=== PATIENT | male | born 1945 | race Caucasian/White ===

== ENCOUNTER 2021-11-09 21:09 | Inpatient (IN) | payer OTHER, BC ==
[~2021-11-09] VITALS: Ht 165.1 cm; Wt 84.4 kg
[~2021-11-09 21:09] MED LIST: AMYL1CAP54 PO; ASA81 PO; BET(AF)80 PO; CLON0.5T4 PO; CLOP75TA2 PO; COR6.25 PO; CYAN100070 PO; DOCU-144 PO; ESCI20TA PO; EZET1TAB35 PO; FOLI-43 PO; GABA800T PO; LISI2.5T48 PO; MEX150 PO; NITR0.4T47 SL; TRIA0.2585 PO; ZOLP10TA2 PO
[2021-11-09 21:28] VITALS: BP_SYST 129
[2021-11-09 22:50] LABS: BASOPHILS # (AUTO) 0.1 K/uL (0.0-0.2); BASOPHILS % (AUTO) 1.1 % (0.0-2.0); EOSINOPHILS # (AUTO) 0.3 K/uL (0.0-0.4); EOSINOPHILS % (AUTO) 3.9 % (0.0-4.0); HEMATOCRIT 36.9 % (36-54); HEMOGLOBIN 12.5 g/dL (14.0-18.0); LYMPHOCYTES # (AUTO) 1.5 K/uL (1.0-5.5); LYMPHOCYTES % (AUTO) 20.8 % (20.5-51.5); MEAN CORPUSCULAR HEMOGLOBIN 30 pg (27-31); MEAN CORPUSCULAR HGB CONC 34 % (32-36); MEAN CORPUSCULAR VOLUME 89 fL (79.0-98.0); MONOCYTES # (AUTO) 0.7 K/uL (0.0-1.0); MONOCYTES % (AUTO) 10.2 % (1.7-9.3); NEUTROPHILS # (AUTO) 4.6 K/uL (1.8-7.7); PLATELET COUNT (AUTO) 215 K/uL (130-430); RED BLOOD CELL COUNT(AUTO) 4.15 MIL/uL (4.2-6.2); RED CELL DISTRIBUTION WIDTH 12.1 % (9.0-15.0); WHITE BLOOD COUNT (AUTO) 7.2 K/uL (4.8-10.8)
[2021-11-09 23:27] LABS: ANION GAP 10 (5-15); CALCIUM 9.4 mg/dL (8.4-11.0); CHLORIDE 98 mmol/L (98-107); GLUCOSE 107 mg/dL (70-99); POTASSIUM 4.1 mmol/L (3.5-5.1); SODIUM SERUM 131 mmol/L (136-145); UREA NITROGEN, BLOOD 15 mg/dL (8-21)
[2021-11-09 23:35] LABS: ALANINE AMINOTRANSFERASE 38 U/L (12-78); ASPARTATE AMINOTRANSFERASE 23 U/L (10-37); TOTAL BILIRUBIN 0.6 mg/dL (0.0-1.0)
[2021-11-10] VITALS: BP_SYST 111
[2021-11-10] MEDS ORDERED: MORPHINE 4 MG INJ. 4 MG/ML VIAL IVP ONE ×2 (00:15)
[2021-11-10] MEDS ORDERED: ENOXAPARIN SODIUM 80 MG/0.8 ML SYRINGE SUBCUT ONE (01:15)
[2021-11-10] MEDS ORDERED: clonazePAM 0.5 MG TABLET PO ONE (01:15)
[2021-11-10] MEDS ORDERED: SOTALOL HCL 80 MG TABLET PO ONE (01:15)
[2021-11-10] MEDS ORDERED: ZOLPIDEM TARTRATE 5 MG TABLET PO ONE (01:15)
[2021-11-10] MEDS ORDERED: FUROSEMIDE 20 MG/2 ML VIAL IVP ONE (02:30)
[2021-11-10] MEDS ORDERED: MORPHINE 4 MG INJ. 4 MG/ML VIAL ONE (02:41)
[2021-11-10] MEDS ORDERED: FURO-150 PO (03:58)
[2021-11-10] MEDS ORDERED: BET(AF)80 PO (03:58)
[2021-11-10] MEDS ORDERED: PERC10 PO (03:58)
[2021-11-10] MEDS ORDERED: LEVA15HF5 INH (03:58)
[2021-11-10] MEDS ORDERED: CYM30 PO (03:58)
[2021-11-10] MEDS ORDERED: APIX5TAB PO (03:58)
[2021-11-10] MEDS ORDERED: EZET1TAB31 PO (03:58)
[2021-11-10] MEDS ORDERED: AMYL1CAP58 PO (03:58)
[2021-11-10 05:01] VITALS: BP_SYST 116
[2021-11-10] MEDS ORDERED: NITROGLYCERIN 0.4 MG TAB.SUBL SL PRN (07:00)
[2021-11-10] MEDS ORDERED: HYDROcodone/ACETAMIN 5-325 MG TAB (NORCO/ VICODIN) PO PRN (07:00)
[2021-11-10 08:00] VITALS: BP_SYST 148
[2021-11-10] MEDS ORDERED: lisinopriL 5 MG TABLET PO SCH (09:00)
[2021-11-10] MEDS ORDERED: DOCUSATE SODIUM 100 MG CAPSULE PO SCH (09:00)
[2021-11-10] MEDS ORDERED: FUROSEMIDE 20 MG TABLET PO SCH (09:00)
[2021-11-10] MEDS: guaiFENesin/DEXTROMETHORPHAN 10 ML UDC PO PRN ×2 (09:28→20:27)
[2021-11-10] MEDS: DULoxetine HCL 30 MG CAPSULE.DR (CYMBALTA) PO SCH (09:29)
[2021-11-10] MEDS: LOSARTAN POTASSIUM 50 MG TABLET (COZAAR) PO SCH (09:29)
[2021-11-10] MEDS: LIPASE/PROTEASE/AMYLASE 1 CAP PO SCH ×3 (09:29→17:38)
[2021-11-10] MEDS: FOLIC ACID 1 MG TABLET PO SCH (09:29)
[2021-11-10] MEDS ORDERED: ZOLPIDEM TARTRATE 5 MG TABLET PO SCH (10:15)
[2021-11-10] MEDS ORDERED: ONDANSETRON HCL 4 MG/2 ML VIAL IVP PRN (10:15)
[2021-11-10] MEDS ORDERED: OXYCODONE/ACETAMINOPHEN *10*mg/325 mg TABLET PO PRN (10:15)
[2021-11-10] MEDS ORDERED: IPRATROPIUM/ALBUTEROL SULFATE 3 ML AMPUL.NEB (DUONEB) INH PRN (10:45)
[2021-11-10] MEDS ORDERED: HYDROmorphone 1 MG/ML INJ. CARTRIDGE IVP PRN (11:00)
[2021-11-10] MEDS ORDERED: NALOXONE HCL 0.4 MG/ML AMP (NARCAN) IVP PRN (11:00)
[2021-11-10] MEDS ORDERED: LIPASE/PROTEASE/AMYLASE 1 CAP PO SCH (12:00)
[2021-11-10] MEDS ORDERED: CITALOPRAM HYDROBROMIDE 20 MG TABLET PO ONE (12:00)
[2021-11-10] MEDS: CARVEDILOL 6.25 MG TABLET (COREG) PO SCH ×2 (12:20→20:27)
[2021-11-10] MEDS: MEXILETINE HCL 150 MG CAPSULE PO SCH ×2 (12:21→20:28)
[2021-11-10 12:22] VITALS: BP_SYST 132
[2021-11-10] MEDS: OXYCODONE/ACETAMINOPHEN *10*mg/325 mg TABLET PO PRN ×2 (12:46→20:28)
[2021-11-10 16:00] VITALS: BP_SYST 138
[2021-11-10] MEDS: clonazePAM 0.5 MG TABLET PO SCH (17:39)
[2021-11-10] MEDS: CYANOCOBALAMIN 1000 mCg TABLET PO SCH (17:39)
[2021-11-10] MEDS: CLOPIDOGREL BISULFATE 75 MG TABLET PO SCH (17:39)
[2021-11-10 20:00] VITALS: BP_SYST 136
[2021-11-10] MEDS: DOCUSATE SODIUM 250 MG CAPSULE PO SCH (20:26)
[2021-11-10] MEDS: EZETIMIBE 10 MG TABLET PO SCH (20:26)
[2021-11-10] MEDS: SIMVASTATIN 40 MG TABLET PO SCH (20:27)
[2021-11-10] MEDS: SOTALOL (AF) 80 MG TABLET PO SCH (20:28)
[2021-11-10] MEDS: APIXABAN 2.5 MG TABLET PO SCH (20:30)
[2021-11-10] MEDS: ZOLPIDEM TARTRATE 5 MG TABLET PO PRN (21:56)
[2021-11-10] MEDS: BUDESONIDE 0.5 MG/2 ML AMPUL.NEB INH SCH (22:18)
[2021-11-11 01:16] VITALS: BP_SYST 111
[2021-11-11] MEDS: BUDESONIDE 0.5 MG/2 ML AMPUL.NEB INH SCH (07:00)
[2021-11-11 07:37] LABS: BASOPHILS % (AUTO) 0.8 % (0.0-2.0); EOSINOPHILS # (AUTO) 0.3 K/uL (0.0-0.4); EOSINOPHILS % (AUTO) 5.4 % (0.0-4.0); HEMATOCRIT 38.6 % (36-54); HEMOGLOBIN 12.9 g/dL (14.0-18.0); LYMPHOCYTES # (AUTO) 1.4 K/uL (1.0-5.5); LYMPHOCYTES % (AUTO) 23.8 % (20.5-51.5); MEAN CORPUSCULAR HEMOGLOBIN 30 pg (27-31); MEAN CORPUSCULAR HGB CONC 33 % (32-36); MEAN CORPUSCULAR VOLUME 89 fL (79.0-98.0); MONOCYTES # (AUTO) 0.7 K/uL (0.0-1.0); MONOCYTES % (AUTO) 12.1 % (1.7-9.3); NEUTROPHILS # (AUTO) 3.3 K/uL (1.8-7.7); NEUTROPHILS % (AUTO) 57.9 % (40.0-70.0); PLATELET COUNT (AUTO) 223 K/uL (130-430); RED BLOOD CELL COUNT(AUTO) 4.36 MIL/uL (4.2-6.2); RED CELL DISTRIBUTION WIDTH 12.2 % (9.0-15.0); WHITE BLOOD COUNT (AUTO) 5.7 K/uL (4.8-10.8)
[2021-11-11 07:52] LABS: ALANINE AMINOTRANSFERASE 29 U/L (12-78); ALBUMIN 2.8 g/dL (3.4-4.8); ANION GAP 7 (5-15); ASPARTATE AMINOTRANSFERASE 17 U/L (10-37); CALCIUM 8.3 mg/dL (8.4-11.0); CHLORIDE 98 mmol/L (98-107); CREATININE 0.78 mg/dL (0.55-1.30); GLUCOSE 117 mg/dL (70-99); SODIUM SERUM 132 mmol/L (136-145); TOTAL BILIRUBIN 0.7 mg/dL (0.0-1.0); UREA NITROGEN, BLOOD 14 mg/dL (8-21)
[2021-11-11 08:00] VITALS: BP_SYST 158
[2021-11-11 08:27] LABS: INR 1.1 (0.80-1.20); PROTHROMBIN TIME 11.9 SECS (9.5-12.5)
[2021-11-11] MEDS: MEXILETINE HCL 150 MG CAPSULE PO SCH ×2 (08:46→21:58)
[2021-11-11] MEDS: FOLIC ACID 1 MG TABLET PO SCH (08:48)
[2021-11-11] MEDS: CARVEDILOL 6.25 MG TABLET (COREG) PO SCH ×2 (08:48→21:00)
[2021-11-11] MEDS: LOSARTAN POTASSIUM 50 MG TABLET (COZAAR) PO SCH (08:48)
[2021-11-11] MEDS: DOCUSATE SODIUM 250 MG CAPSULE PO SCH ×2 (08:49→21:57)
[2021-11-11] MEDS: DULoxetine HCL 30 MG CAPSULE.DR (CYMBALTA) PO SCH (08:49)
[2021-11-11] MEDS: APIXABAN 2.5 MG TABLET PO SCH ×2 (08:54→22:05)
[2021-11-11] MEDS: LIPASE/PROTEASE/AMYLASE 1 CAP PO SCH ×3 (08:55→17:35)
[2021-11-11] MEDS ORDERED: SOTALOL (AF) 80 MG TABLET PO SCH (09:00)
[2021-11-11] MEDS ORDERED: CITALOPRAM HYDROBROMIDE 20 MG TABLET PO SCH (09:00)
[2021-11-11] MEDS ORDERED: FUROSEMIDE 20 MG TABLET PO SCH (09:00)
[2021-11-11] MEDS ORDERED: FUROSEMIDE 20 MG TABLET PO ONE (10:15)
[2021-11-11] MEDS: OXYCODONE/ACETAMINOPHEN *10*mg/325 mg TABLET PO PRN ×3 (10:25→17:37)
[2021-11-11 10:29] LABS: CHOLESTEROL 120 mg/dL (<200); HDL CHOLESTEROL 40 mg/dL (>45); LDL CHOLESTEROL 68 mg/dL (<100); TRIGLYCERIDES 73 mg/dL (30-150)
[2021-11-11] MEDS ORDERED: SOTALOL (AF) 80 MG TABLET PO ONE (10:30)
[2021-11-11 12:21] VITALS: BP_SYST 126
[2021-11-11 17:19] VITALS: BP_SYST 122
[2021-11-11] MEDS: CLOPIDOGREL BISULFATE 75 MG TABLET PO SCH (17:35)
[2021-11-11] MEDS: clonazePAM 0.5 MG TABLET PO SCH (17:36)
[2021-11-11] MEDS: CYANOCOBALAMIN 1000 mCg TABLET PO SCH (17:36)
[2021-11-11 20:00] VITALS: BP_SYST 116
[2021-11-11] MEDS: SIMVASTATIN 40 MG TABLET PO SCH (21:57)
[2021-11-11] MEDS: ZOLPIDEM TARTRATE 5 MG TABLET PO PRN (21:58)
[2021-11-11] MEDS: EZETIMIBE 10 MG TABLET PO SCH (21:58)
[2021-11-11] MEDS: SOTALOL (AF) 80 MG TABLET PO SCH (21:59)
[2021-11-11] MEDS: HYDROmorphone 2 MG/ML VIAL IVP PRN (22:12)
[2021-11-11] MEDS: guaiFENesin/DEXTROMETHORPHAN 10 ML UDC PO PRN (22:58)
[2021-11-12 01:08] VITALS: BP_SYST 116
[2021-11-12 02:21] VITALS: BP_SYST 134
[2021-11-12] MEDS: HYDROmorphone 2 MG/ML VIAL IVP PRN (02:23)
[2021-11-12 05:58] LABS: BASOPHILS % (AUTO) 0.8 % (0.0-2.0); EOSINOPHILS # (AUTO) 0.3 K/uL (0.0-0.4); EOSINOPHILS % (AUTO) 5.3 % (0.0-4.0); HEMATOCRIT 37.3 % (36-54); HEMOGLOBIN 12.7 g/dL (14.0-18.0); LYMPHOCYTES # (AUTO) 1.7 K/uL (1.0-5.5); LYMPHOCYTES % (AUTO) 27.5 % (20.5-51.5); MEAN CORPUSCULAR HEMOGLOBIN 30 pg (27-31); MEAN CORPUSCULAR HGB CONC 34 % (32-36); MEAN CORPUSCULAR VOLUME 88 fL (79.0-98.0); MONOCYTES # (AUTO) 0.7 K/uL (0.0-1.0); NEUTROPHILS # (AUTO) 3.4 K/uL (1.8-7.7); NEUTROPHILS % (AUTO) 55.4 % (40.0-70.0); PLATELET COUNT (AUTO) 229 K/uL (130-430); RED BLOOD CELL COUNT(AUTO) 4.23 MIL/uL (4.2-6.2); RED CELL DISTRIBUTION WIDTH 12.5 % (9.0-15.0); WHITE BLOOD COUNT (AUTO) 6.1 K/uL (4.8-10.8)
[2021-11-12 07:22] LABS: ALBUMIN 2.8 g/dL (3.4-4.8); ANION GAP 5 (5-15); ASPARTATE AMINOTRANSFERASE 20 U/L (10-37); CALCIUM 8.4 mg/dL (8.4-11.0); CHLORIDE 97 mmol/L (98-107); CREATININE 0.81 mg/dL (0.55-1.30); GLUCOSE 98 mg/dL (70-99); SODIUM SERUM 131 mmol/L (136-145); UREA NITROGEN, BLOOD 13 mg/dL (8-21)
[2021-11-12] MEDS: OXYCODONE/ACETAMINOPHEN *10*mg/325 mg TABLET PO PRN ×3 (08:35→20:06)
[2021-11-12] MEDS ORDERED: CITALOPRAM HYDROBROMIDE 20 MG TABLET PO SCH (09:00)
[2021-11-12] MEDS: APIXABAN 2.5 MG TABLET PO SCH ×2 (09:19→20:07)
[2021-11-12] MEDS: guaiFENesin/DEXTROMETHORPHAN 10 ML UDC PO PRN (09:20)
[2021-11-12] MEDS: SOTALOL (AF) 80 MG TABLET PO SCH ×2 (09:22→20:16)
[2021-11-12] MEDS: MEXILETINE HCL 150 MG CAPSULE PO SCH ×2 (09:23→20:15)
[2021-11-12] MEDS: CARVEDILOL 6.25 MG TABLET (COREG) PO SCH ×2 (09:23→20:14)
[2021-11-12] MEDS: DOCUSATE SODIUM 250 MG CAPSULE PO SCH ×2 (09:23→20:14)
[2021-11-12] MEDS: FOLIC ACID 1 MG TABLET PO SCH (09:24)
[2021-11-12] MEDS: LIPASE/PROTEASE/AMYLASE 1 CAP PO SCH ×3 (09:25→17:38)
[2021-11-12] MEDS: LOSARTAN POTASSIUM 50 MG TABLET (COZAAR) PO SCH (09:26)
[2021-11-12] MEDS: FUROSEMIDE 40 MG TABLET PO SCH (09:27)
[2021-11-12 09:38] LABS: ALANINE AMINOTRANSFERASE 30 U/L (12-78); TOTAL BILIRUBIN 0.6 mg/dL (0.0-1.0)
[2021-11-12] MEDS: BUDESONIDE 0.5 MG/2 ML AMPUL.NEB INH SCH ×2 (09:54→20:00)
[2021-11-12] MEDS ORDERED: CITALOPRAM HYDROBROMIDE 20 MG TABLET PO ONE (10:00)
[2021-11-12 10:21] VITALS: BP_SYST 119
[2021-11-12] MEDS ORDERED: LIDOCAINE PATCH 5% 1 EA TP ONE (14:00)
[2021-11-12 16:12] VITALS: BP_SYST 114
[2021-11-12] MEDS: clonazePAM 0.5 MG TABLET PO SCH (17:38)
[2021-11-12] MEDS: CLOPIDOGREL BISULFATE 75 MG TABLET PO SCH (17:38)
[2021-11-12] MEDS: CYANOCOBALAMIN 1000 mCg TABLET PO SCH (17:38)
[2021-11-12] MEDS: EZETIMIBE 10 MG TABLET PO SCH (20:06)
[2021-11-12 20:11] VITALS: BP_SYST 136
[2021-11-12] MEDS: SIMVASTATIN 40 MG TABLET PO SCH (20:14)
[2021-11-12] MEDS: ZOLPIDEM TARTRATE 5 MG TABLET PO PRN (21:40)
[2021-11-13 00:08] VITALS: BP_SYST 134
[2021-11-13 07:24] LABS: ANION GAP 8 (5-15); CALCIUM 9.4 mg/dL (8.4-11.0); CHLORIDE 98 mmol/L (98-107); CREATININE 0.89 mg/dL (0.55-1.30); GLUCOSE 122 mg/dL (70-99); SODIUM SERUM 134 mmol/L (136-145); UREA NITROGEN, BLOOD 14 mg/dL (8-21)
[2021-11-13] MEDS: BUDESONIDE 0.5 MG/2 ML AMPUL.NEB INH SCH (07:36)
[2021-11-13 07:44] LABS: BASOPHILS # (AUTO) 0.1 K/uL (0.0-0.2); BASOPHILS % (AUTO) 0.8 % (0.0-2.0); EOSINOPHILS # (AUTO) 0.4 K/uL (0.0-0.4); EOSINOPHILS % (AUTO) 5.1 % (0.0-4.0); HEMATOCRIT 41.8 % (36-54); HEMOGLOBIN 14.3 g/dL (14.0-18.0); LYMPHOCYTES # (AUTO) 1.7 K/uL (1.0-5.5); LYMPHOCYTES % (AUTO) 22.3 % (20.5-51.5); MEAN CORPUSCULAR HEMOGLOBIN 30 pg (27-31); MEAN CORPUSCULAR HGB CONC 34 % (32-36); MEAN CORPUSCULAR VOLUME 88 fL (79.0-98.0); MONOCYTES # (AUTO) 0.6 K/uL (0.0-1.0); MONOCYTES % (AUTO) 8.7 % (1.7-9.3); NEUTROPHILS # (AUTO) 4.7 K/uL (1.8-7.7); NEUTROPHILS % (AUTO) 63.1 % (40.0-70.0); PLATELET COUNT (AUTO) 321 K/uL (130-430); RED BLOOD CELL COUNT(AUTO) 4.74 MIL/uL (4.2-6.2); RED CELL DISTRIBUTION WIDTH 12.4 % (9.0-15.0); WHITE BLOOD COUNT (AUTO) 7.4 K/uL (4.8-10.8)
[2021-11-13] MEDS: LIPASE/PROTEASE/AMYLASE 1 CAP PO SCH ×2 (08:05→12:38)
[2021-11-13] MEDS: OXYCODONE/ACETAMINOPHEN *10*mg/325 mg TABLET PO PRN ×2 (08:06→12:39)
[2021-11-13] MEDS ORDERED: LIDOCAINE PATCH 5% 1 EA TP SCH (09:00)
[2021-11-13] MEDS ORDERED: CITALOPRAM HYDROBROMIDE 20 MG TABLET PO SCH (09:00)
[2021-11-13 09:05] VITALS: BP_SYST 129
[2021-11-13] MEDS: FOLIC ACID 1 MG TABLET PO SCH (09:44)
[2021-11-13] MEDS: FUROSEMIDE 40 MG TABLET PO SCH (09:44)
[2021-11-13] MEDS: LOSARTAN POTASSIUM 50 MG TABLET (COZAAR) PO SCH (09:45)
[2021-11-13] MEDS: DOCUSATE SODIUM 250 MG CAPSULE PO SCH (09:45)
[2021-11-13] MEDS: CARVEDILOL 6.25 MG TABLET (COREG) PO SCH (09:45)
[2021-11-13] MEDS: MEXILETINE HCL 150 MG CAPSULE PO SCH (09:46)
[2021-11-13] MEDS: SOTALOL (AF) 80 MG TABLET PO SCH (09:47)
[2021-11-13] MEDS: APIXABAN 2.5 MG TABLET PO SCH (09:57)
[2021-11-13 11:23] VITALS: BP_SYST 119
[2021-11-13 11:30] VITALS: BP_SYST 119
[2021-11-13 11:49] VITALS: BP_SYST 119
== END 2021-11-13 13:35 | disposition home or self-care (01) | DRG 291 ==
LOC: SED 21:09 → STU 11-10 02:34
PROVIDERS: ADMIT Internal Medicine; ATTEND Internal Medicine
DX: I11.0 Hypertensive heart disease with heart failure (principal); J96.21 Acute and chronic respiratory failure with hypoxia; I50.43 Acute on chronic combined systolic (congestive) and diastolic (congestive) heart failure; J44.1 Chronic obstructive pulmonary disease with (acute) exacerbation; S42.215A Unspecified nondisplaced fracture of surgical neck of left humerus, initial encounter for closed fracture; S42.295A Other nondisplaced fracture of upper end of left humerus, initial encounter for closed fracture; E87.1 Hypo-osmolality and hyponatremia; I47.2 Ventricular tachycardia; F33.1 Major depressive disorder, recurrent, moderate; D68.59 Other primary thrombophilia; I25.10 Atherosclerotic heart disease of native coronary artery without angina pectoris; Z20.822 Contact with and (suspected) exposure to COVID-19; I25.5 Ischemic cardiomyopathy; W18.39XA Other fall on same level, initial encounter; F41.9 Anxiety disorder, unspecified; I48.0 Paroxysmal atrial fibrillation; M48.061 Spinal stenosis, lumbar region without neurogenic claudication; D64.9 Anemia, unspecified; G89.4 Chronic pain syndrome; Z88.5 Allergy status to narcotic agent; Z88.8 Allergy status to other drugs, medicaments and biological substances; Z91.041 Radiographic dye allergy status; Z79.899 Other long term (current) drug therapy; Z79.82 Long term (current) use of aspirin; Z79.01 Long term (current) use of anticoagulants; Z95.810 Presence of automatic (implantable) cardiac defibrillator; Z90.49 Acquired absence of other specified parts of digestive tract; Z86.74 Personal history of sudden cardiac arrest; Y93.89 Activity, other specified; Y92.89 Other specified places as the place of occurrence of the external cause; Y99.8 Other external cause status
CPT/HCPCS: 36415; 71045; 73030; 78579; 78580-TC; 80048; 80053; 80061; 82550; 83735; 83880; 84484; 85025; 85379; 85610-TC; 87081; 93005; 93306; 94640; 94760; 96372; 96374; 99285; A9539; A9540; G0378; J1170; J1650; J1940; J2270; J2405; J7626